=== PATIENT | male | born 1950 | race Caucasian/White ===

== ENCOUNTER 2019-01-31 08:47 | Day surgery (SDC) | payer OTHER ==
[2019-01-31] VITALS (8 sets, daily range): BP systolic 118–130; BP diastolic 72–80
[~2019-01-31] VITALS: Ht 170.2 cm; Wt 68.0 kg
[2019-01-31] MEDS ORDERED: FLOMAX0.4 MG ORAL (09:43)
[2019-01-31] MEDS ORDERED: SIMVASTATIN20 MG ORAL (09:43)
[2019-01-31] MEDS ORDERED: OMEPRAZOLE20 M2 ORAL (09:46)
[2019-01-31] MEDS ORDERED: PROSCAR5 MG ORAL (09:46)
--- NOTE | 2019-01-31 09:49 | Short Stay Surgery H&P ---
History of Present Illness History of Present Illness Chief Complaint screening colon, GERD HPI Jose Campuzano is a 68 year old male who was admitted on for Abdominal Pain, Constiptation, Difficulty Patient History Allergies: Coded Allergies: No Known Allergies (Unverified , 01/28/19) PAST MEDICAL HISTORY: (1) Hypercholesteremia (2) Parotid gland adenocarcinoma (3) BPH (benign prostatic hyperplasia) Medication History Scheduled Finasteride* (Proscar*), 5 MG ORAL DAILY, (Reported) Omeprazole (Omeprazole), 20 MG ORAL DAILY, (Reported) Simvastatin (Zocor), 20 ORAL BEDTIME, (Reported) Review of Systems Cardiovascular: Reports: no symptoms Respiratory: Reports: no symptoms Skeletal: Reports: no symptoms Gastrointestinal: Reports: no symptoms Genitourinary: Reports: no symptoms Neurologic: Reports: no symptoms Endocrine: Reports: no symptoms Hematologic: Reports: no symptoms Physical Exam Vital Signs Last Vital Signs Date Time Temp Pulse Resp B/P (MAP) Pulse Ox O2 Delivery O2 Flow Rate FiO2 01/31/19 09:34 Room Air 01/31/19 09:30 97.7 70 18 130/76 99 Skin: normal HENT: normal Heart: normal Lungs: normal Abdomen: normal Extremities: normal Plan Plan of Care colonoscopy Attestation Are the patient's medical conditions optimized for surgery? Attestation Response: yes Arnulfo Parry MD Jan 31, 2019 09:49
[2019-01-31] MEDS ORDERED: Propofol 200mg/20ml IV ONE (10:00)
[2019-01-31] MEDS ORDERED: Lidocaine 1% MPF 10mg/ml 5ml ONE (10:00)
[2019-01-31] MEDS ORDERED: Atropine Sulfate 0.4mg/ml inj ONE (10:00)
--- NOTE | 2019-01-31 10:37 | Endoscopy Procedure Note ---
Endoscopy Procedure Note General Indication for Procedure: screening colon, GERD Procedures Performed: EGD, colonoscopy Operative Findings/Diagnosis: gastritis, hemorrhois Specimen: yes Pt Tolerated Procedure Well: Yes Estimated Blood Loss: none Anesthesia Anesthesiologist: steven Anesthesia: MAC Inserted Devices Implant(s) used?: No Quality Quality of Bowel Preparation: Good Did scope reach the cecum?: Yes Was there any complications?: No GI Core Measures 50 yrs or older w/o bx or poly: No 10yrs. F/U recommended: Yes If not recommended, why?: Above average risk 18 years or older w/prev. colo: No Arnulfo Parry MD Jan 31, 2019 10:37
--- NOTE | 2019-01-31 11:01 | Anethesia Preoperative Eval ---
Anesthesia Pre-op PMH/ROS General Date of Evaluation: Jan 31, 2019 Time of Evaluation: 10:04 Anesthesiologist: steven ASA Score: ASA 3 Mallampati Score Class I : Soft palate, uvula, fauces, pillars visible Class II: Soft palate, uvula, fauces visible Class III: Soft palate, base of uvula visible Class IV: Only hard plate visible Mallampati Classification: Class II Surgeon: dianna Diagnosis: gerd, anemia, colon screening Surgical Procedure: egd/colonoscopy Anesthesia History: none Social History: smoking - nonsmoker Family History: no anesthesia problems Allergies: Coded Allergies: No Known Allergies (Unverified , 01/28/19) Medications: see eMAR Patient NPO?: Yes Past Medical History Cardiovascular: Reports: other - hypercholesterolemia Gastrointestinal/Genitourinary: Reports: GERD, other - prostate problems HEENT: Reports: other - gland cancer Anesthesia Pre-op Phys. Exam Physician Exam Last Vital Signs Date Time Temp Pulse Resp B/P (MAP) Pulse Ox O2 Delivery O2 Flow Rate FiO2 01/31/19 10:50 76 16 123/76 99 Room Air 01/31/19 10:45 3 01/31/19 10:42 97.1 Neurologic: other - left facial paresis Cardiovascular: RRR Respiratory: CTA Airway Exam Mallampati Score: Class II MO: limited Neck: post surgical TMD: 2fb ROM: limited Anesthesia Pre-op A/P Studies Pre-op Studies: EKG - nsr Risk Assessment & Plan Assessment: asa3 Plan: mac Status Change Before Surgery: No Pre-Antibiotics Drug: Lillian Cabrera MD Jan 31, 2019 11:01
--- NOTE | 2019-01-31 11:03 | Immediate Post-Op Evaluation ---
Immediate Post-Op Evalulation Immediate Post-Op Evalulation Procedure: egd/colonoscopy/bx Date of Evaluation: Jan 31, 2019 Time of Evaluation: 10:54 IV Fluids: 250ml 0.9ns Blood Products: none Estimated Blood Loss: negligible Blood Pressure Systolic: 130 Blood Pressure Diastolic: 79 Pulse Rate: 77 Respiratory Rate: 18 O2 Sat by Pulse Oximetry: 100 Temperature (Fahrenheit): 97.1 Pain Score (1-10): 0 Nausea: No Vomiting: No Complications none Patient Status: awake, reacts, patent Hydration Status: adequate Drug: Lillian Cabrera MD Jan 31, 2019 11:03
--- NOTE | 2019-01-31 11:04 | 48 Hour Post Anesthesia Eval ---
Post Anesthesia Evaluation Procedure: egd/colonoscopy/bx Date of Evaluation: Jan 31, 2019 Time of Evaluation: 10:58 Blood Pressure Systolic: 127 0: 78 Pulse Rate: 79 Respiratory Rate: 18 Temperature (Fahrenheit): 97.1 O2 Sat by Pulse Oximetry: 100 Airway: patent Nausea: No Vomiting: No Pain Intensity: 0 Hydration Status: adequate Cardiopulmonary Status: stable Mental Status/LOC: patient returned to baseline Post-Anesthesia Complications: none Follow-up care needed: N/A Lillian Brizuela MD Jan 31, 2019 11:04
[2019-01-31] MEDS ORDERED: Atropine Inj 1mg/10ml Syr IV PRN (11:15)
[2019-01-31] MEDS ORDERED: fentaNYL 100 mcg/2 mL IV PRN (11:15)
[2019-01-31] MEDS ORDERED: DiphenhydrAMINE 50mg/ml Inj IVP PRN (11:15)
[2019-01-31] MEDS ORDERED: Midazolam 2mg/2ml Inj IVP PRN (11:15)
--- NOTE | 2019-01-31 17:45 | Procedure Note ---
DATE OF PROCEDURE: 01/31/2019 SURGEON: Arnulfo Parry M.D. REFERRING PHYSICIAN: Brigid Lares M.D. PROCEDURE: Upper endoscopy with biopsy and colonoscopy. ANESTHESIA: Per Dr. Hannah. INSTRUMENT: Olympus adult flexible upper endoscope and colonoscope. INDICATIONS: History of parotid gland cancer, GERD, screening colon evaluation. The procedure, risks, benefits, and possible consequences, including hemorrhage, aspiration, perforation and infection, and alternative treatments, were explained to the patient/legal guardian by Dr. Arnulfo Parry and the patient/legal guardian understood and accepted these risks. PROCEDURE IN DETAIL: After informed consent was obtained and the patient was adequately sedated, Olympus upper endoscope was advanced from the mouth into the second portion of the duodenum and retroflexion was performed in the stomach. GE junction was found at 35 cm from the incisors. No evidence of any esophagitis or esophageal ulceration. In the stomach, there was diffuse gastritis. Random biopsies from antrum and body were obtained to rule out H. pylori infection. At this time, the upper endoscope was retrieved and the patient was turned over for colonoscopy. First, rectal exam was performed, which was normal. Then, the scope was advanced from the rectum into the cecum documented by appendix orifice, ileocecal valve, and right upper quadrant palpation. Quality of prep was very good. The patient had some scattered diverticulosis. No obvious mass or polyp was seen. Retroflexion of rectum showed evidence of few medium-sized nonbleeding internal hemorrhoids. SUMMARY OF FINDINGS: 1. Gastritis, status post biopsy. 2. Scattered diverticulosis. 3. Internal hemorrhoids. RECOMMENDATIONS: 1. Follow up pathology. 2. The patient to go ahead and will start his radiation therapy tomorrow. 3. Follow up in the office next week for followup. I want to thank Dr. Brigid Lares for this kind referral. Arnulfo Parry M.D. DR: RENETTA JOB#: [id number] CC: Brigid Lares M.D.; Fax#: [phone]
== END 2019-01-31 11:30 | disposition home or self-care (01) ==
LOC: GAS 08:47
DX: Z12.11 Encounter for screening for malignant neoplasm of colon (principal); K21.9 Gastro-esophageal reflux disease without esophagitis; K29.50 Unspecified chronic gastritis without bleeding; K57.90 Diverticulosis of intestine, part unspecified, without perforation or abscess without bleeding; K64.8 Other hemorrhoids; E78.00 Pure hypercholesterolemia, unspecified; Z85.89 Personal history of malignant neoplasm of other organs and systems; K59.00 Constipation, unspecified
CPT/HCPCS: 43239; 45378; 93005; J0461; J2704; 94003; 94150